=== PATIENT | female | born 1950 | race Caucasian/White ===

== ENCOUNTER → 2018-03-04 | Outpatient (CLI) | payer OTHER | LOC: MRI 03-01 10:59 | DX: M25.551 Pain in right hip (principal) ==

== ENCOUNTER 2018-05-19 05:23 | Observation (INO) | payer OTHER ==
[~2018-05-19] VITALS: Ht 172.7 cm; Wt 68.0 kg
--- NOTE | ~2018-05-19 | O ---
[facility] [place] [address] OPERATIVE REPORT Name: JYOTI STEINER Room #: 429-P [facility] Cecilia Mckenzie#: [id number] Admission: 05/19/18 Attend Phys: Darien Baldwin MD Discharge: 05/20/18 Date of : 52 Report #: [id number] THIS REPORT FOR: //name// CC: Reid Badlwin DATE OF SERVICE: 05/19/2018 SERVICE: [facility] [place]. SURGEON: Darien Baldwin MD OFFICE ASST: Kimberly Liu NP INDICATIONS FOR ASSIST: Extremity positioning, suture management, assistance with repair. PREOPERATIVE DIAGNOSES: 1. Right hip pain. 2. Right hip trochanteric bursitis. 3. Right hip gluteus medius and minimus tendon tears. POSTOPERATIVE DIAGNOSES: 1. Right hip pain. 2. Right hip trochanteric bursitis. 3. Right hip gluteus medius and minimus tendon tears. 4. Mild right hip chondromalacia. PROCEDURE: 1. Right hip diagnostic arthroscopy with limited debridement. 2. Right hip endoscopic trochanteric bursectomy. 3. Right hip open abductor tendon repair of gluteus medius and minimus tendons. COMPLICATIONS: None. DRAINS: None. SPECIMENS: None. ANESTHESIA: General. FINDINGS: 1. Healthy appearing intra-articular space, requiring minimal debridement. 2. Abductor tendon repair with Reserve Iconix double-loaded suture anchor x 1 and ReelX suture anchor x 2 providing a dual row repair construct. [facility] [address] [place] [address] OPERATIVE REPORT Name: JYOTI STEINER Room #: 429-P [facility] Cecilia Mckenzie#: [id number] Admission: 05/19/18 Attend Phys: Darien Baldwin MD Discharge: 05/20/18 Date of : 52 Report #: [id number] HISTORY: The patient is a female with long-standing history of right lateral hip pain that had failed conservative measures including rest, activity modifications, oral medicines and injection medications as well as physical therapy. We had tried extensive conservative measures and she eventually elected to undergo surgical treatment. An MRI showed a high-grade abductor tendon tear of the gluteus medius and minimus tendons that was retracted. She had a very large area of bursitis present as well. Risks, benefits, alternatives and indications of surgery were discussed with her in detail. Risks include but not limited to pain, bleeding, infection, injury to nerves or blood vessels, persistent pain despite surgical intervention, failure of any repair, progression of any preexisting chondral injury, stiffness, need for further surgery as well as complications related to anesthesia such as stroke, heart attack, pulmonary complications, thromboembolic disease and . Despite these risks, she wished to proceed. PROCEDURE IN DETAIL: After right lower extremity was correctly identified in the preoperative holding as the operative extremity, the patient was taken to the operating room where general anesthesia was induced without complication. She was transferred to the operating room table. She was padded appropriately. Prophylactic antibiotics were administered at appropriate time. Right hip femoral head and neck junction was evaluated under fluoroscopy. There was no evidence of Cam impingement. Right leg was prepped and draped in standard sterile fashion. Time-out procedure was performed. Traction was applied to the right lower extremity and under fluoroscopic guidance, diagnostic arthroscopy was performed and a standard anterolateral viewing portal was established, followed by mid anterior working portal. No significant capsulotomy was performed. There was minimal erythema present. The articular cartilage had some fraying at the chondral labral junction anterosuperiorly, but this was not excessively unstable and the labrum appeared healthy overall. There was no full-thickness cartilage defect present anywhere and the femoral head articular cartilage was normal. There was some fraying at the chondral labral junction as stated and this was debrided with the shaver arthroscopically and then the instruments were removed from the intra-articular space and traction was let down. Total traction time was 12 minutes. Scope was then oriented into the peritrochanteric space where there was significant amount of bursitis and the trochanteric bursitis was resected with the shaver in a sequential fashion. There was immediately noted to be chronic tearing of the abductor tendon with tendinopathy present as well as fibrosis and attempted healing. The tear was full thickness. At this point, the procedure converted to open in order to obtain the best possible repair. The greater trochanter was abraded and prepared for bleeding surface after the lateral exposure had been made according to the skin, subcutaneous fat and the overlying fascia, which was split in line with the incision. The tear could be [facility] [address] [place] [address] OPERATIVE REPORT Name: JYOTI STEINER Room #: 429-P [facility] Mckenzie#: [id number] Admission: 05/19/18 Attend Phys: Darien Baldwin MD Discharge: 05/20/18 Date of : 52 Report #: [id number] visualized and palpated and was the majority of gluteus medius and minimus muscles and tendons. After the trochanter was prepared, the first of two of all suture anchors were placed, but these do not have strong purchase in the cancellous bone, so these were converted to running locking sutures, which were utilized for a knotless suture anchor, one proximal and one distal, which provided a double row suture repair construct. This was a tensioning anchor placed x 2 which provided excellent compression and tensioning of the tissue with buddhism of direct contact of the muscle and tendon unit to the greater trochanter. These two anchors were placed medially and centrally and then a third anchor was utilized posteriorly with a SmartPillx anchor double-loaded with a total of four suture limbs therefore utilized to repair the posterior tissue. After all 12 suture limbs had been adequately secured, the tendon was oversewn upon itself to reinforce the repair and then it was copiously irrigated. The IT band was closed with 0 Vicryl suture in [id number] fashion and then the fat layer was closed with 2-0 Vicryl suture. The skin was closed with 2-0 Vicryl, followed by running subcuticular 3-0 Monocryl and Dermabond. Sterile dressing was applied. The patient was awakened from anesthesia and taken to recovery room in stable condition. There were no complications. All counts were recorded as correct. <ELECTRONICALLY SIGNED> By: Darien Baldwin MD 05/20/18 [id number] Darien Baldwin MD /nt
--- NOTE | ~2018-05-19 | EKG ---
[address] [place] [address] ELECTROCARDIOGRAM REPORT Name: JYOTI STEINER Room #: 429-P [facility].#: [id number] Admission: 05/19/18 Attend Phys: Darien Baldwin MD Discharge: 05/20/18 Date of : 52 Report #: [id number] THIS REPORT FOR: //name// [facility] Test Date: 2018-05-19 Test Time: 06:18:40 Pat Name: JYOTI STEINER Department: Room: 429 Gender: F [employer] Instructor: AGUSTIN : 1950 Requested By: Darien Baldwin Order Number: [id number] MD: Ghulam García Measurements Intervals [place] Rate: 69 P: 47 MI: 123 QRS: 17 QRSD: 102 T: 33 QT: 403 QTc: 432 Interpretive Statements Sinus rhythm Probable left atrial enlargement RSR' in V1 or V2, right VCD or RVH No previous ECG available for comparison Electronically Signed On 05-21-2018 15:00:56 CDT by Ghulam García [email or web address] <ELECTRONICALLY SIGNED> By: Ghulam García MD 05/21/18 1500 7 7 Ghulam García MD /SUE
[~2018-05-19 05:23] MED LIST: LIPITOR10 MG PO; LOSARTAN POTASS50 MG PO; VITAMIN D-32000 UNIT PO; ZANTAC 150MG T150 MG PO
[2018-05-19 06:40] VITALS: BP 133/55
[2018-05-19 11:12] VITALS: BP 121/53
[2018-05-19 19:44] VITALS: BP 104/49
[2018-05-20 04:44] VITALS: BP 112/57
[2018-05-20 07:30] VITALS: BP 140/60
[2018-05-20] MEDS ORDERED: OXAYDO5 MG PO (13:19)
[2018-05-20] MEDS ORDERED: COLACE100 MG PO (13:19)
[2018-05-20] MEDS ORDERED: CELEBREX 200 M200 M1 PO (13:20)
[2018-05-20] MEDS ORDERED: ZOFRAN4 MG PO (13:20)
[2018-05-20] MEDS ORDERED: ASPIRIN325 PO (13:20)
[2018-05-20 14:18] VITALS: BP 140/60
== END 2018-05-20 17:32 | disposition home or self-care (01) ==
LOC: TBA 05:23 → OR 05:23 → TBA 05:24 → OR 10:03 → 4E 10:03 → OR 13:10 → 4E 05-20 17:32
DX: M70.61 Trochanteric bursitis, right hip (principal); M94.251 Chondromalacia, right hip; S76.011A Strain of muscle, fascia and tendon of right hip, initial encounter; Z87.891 Personal history of nicotine dependence